=== PATIENT | female | born 1980 | race Caucasian/White ===

== ENCOUNTER 2023-10-22 21:17 | Emergency (ER) | payer OTHER ==
[~2023-10-22] VITALS: Ht 157.5 cm; Wt 68.0 kg
[2023-10-22 21:18] VITALS: BP 127/80; PULSE 85; RESP 16
[2023-10-23] MEDS: IBUPROFEN 600 MG TABLET PO ONE (00:49)
== END 2023-10-23 01:05 | disposition home or self-care (01) ==
LOC: EDH 21:17
DX: S93.491A Sprain of other ligament of right ankle, initial encounter (principal); Z90.49 Acquired absence of other specified parts of digestive tract; Z90.710 Acquired absence of both cervix and uterus; X50.1XXA Overexertion from prolonged static or awkward postures, initial encounter; Y93.89 Activity, other specified; Y92.89 Other specified places as the place of occurrence of the external cause; Y99.8 Other external cause status
CPT/HCPCS: 73610